=== PATIENT | female | born 1975 | race Two or more races ===

== ENCOUNTER 2024-10-19 15:01 | Outpatient (CLI) | payer OTHER | END 2024-10-19 15:12 | disposition home or self-care (01) | LOC: RAD 15:01 | PROVIDERS: ATTEND Orthopaedic Surgery | DX: Z76.89 Persons encountering health services in other specified circumstances (principal); M25.551 Pain in right hip; M25.552 Pain in left hip; M25.561 Pain in right knee; M25.562 Pain in left knee ==